=== PATIENT | male | born 1955 | race Caucasian/White ===

== ENCOUNTER 2018-08-13 08:37 | Inpatient (IN) | payer OTHER ==
--- NOTE | 2018-08-12 18:21 | GHP ---
DATE OF ADMISSION: 08/13/2018 DATE OF SURGERY: 08/13/2018. HISTORY OF PRESENT ILLNESS: The patient is a 63-year-old male who presents with right hip pain that has become chronic. It hurts with weightbearing and he has difficulty walking and bearing weight thr ough his leg and he is limping. He has tried anti-inflammatory medication. He has had a greater tro chanteric bursal injection that did not help, dry needling did not help, a course of physical therapy , and his symptoms have persisted. An MRI shows arthritic change of the hip as well as femoral aceta bular impingement. His pain impacts his gait, as well as activities of daily living. A right total hip arthroplasty is now planned. PAST MEDICAL HISTORY: He has a history of elevated cholesterol. He has a history of heart problems involving a septal defect that has been surgically corrected, and he has had skin cancer and treatmen t. He has had shoulder procedures, both sides. He has had a right total knee arthroplasty. He has had repair of an atrial septal defect. MEDICATIONS: He is using atorvastatin 10 mg p.o. daily, aspirin 81 mg p.o. daily. ALLERGIES: No known drug allergies. SOCIAL HISTORY: He is a nonsmoker. REVIEW OF SYSTEMS: Positive from a cardiac standpoint for repair of atrial septal defect and elevate d cholesterol. PHYSICAL EXAM: GENERAL APPEARANCE: Ray is a well-developed, well-nourished male in no apparent dist ress. HEAD AND NECK: Normocephalic, atraumatic. CHEST: Clear. CARDIOVASCULAR: Regular rate and rhythm. ABDOMEN: Soft. NEUROLOGIC: He is alert and oriented x3. EXTREMITIES: The right hip show s pain with hip flexion as well as internal rotation. His neurovascular exam appears intact. SKIN: Intact. IMPRESSION: Right hip arthritis and femoral acetabular impingement. PLAN: Right total hip arthroplasty. Benefits and risks of surgery have been reviewed. He has marlon d his consent form and wishes to proceed. He understands that the complications could include infect ion, damage to blood vessel or nerve, failure or loosening of the components and need for revision, h ip instability, leg length discrepancy, a blood clot in the leg or lungs, or bleeding and need for tr ansfusion. He has signed his consent form and he wishes to proceed. /[id number]/MODL
--- NOTE | 2018-08-13 08:18 | PDANEPAE ---
ANE Past Medical History - Cardiovascular History Hx Hypertension: No Hx Arrhythmias: No Hx Chest Pain: No Hx Coronary Artery / Peripheral Vascular Disease: No Hx CHF / Valvular Disease: No Hx Palpitations: No Cardiovascular History Comment: ASD REPAIR 1972 - Pulmonary History Hx COPD: No Hx Asthma/Reactive Airway Disease: No Hx Recent Upper Respiratory Infection: No Hx Oxygen in Use at Home: No Hx Sleep Apnea: No Sleep Apnea Screening Result - Last Documented: Negative - Neurologic History Hx Cerebrovascular Accident: No Hx Seizures: No Hx Dementia: No - Endocrine History Hx Diabetes: No - Renal History Hx Renal Disorders: No - Liver History Hx Hepatic Disorders: No - Neurological & Psychiatric Hx Hx Neurological and Psychiatric Disorders: No - Cancer History Hx Cancer: Yes Cancer History Comment: SKIN ca removed - Congenital Disorder History Hx Congenital Disorders: No - GI History Hx Gastrointestinal Disorders: No - Other Health History Other Health History: none - Chronic Pain History Chronic Pain: No - Surgical History Prior Surgeries: 2014 rotator cuff. 2016 redo. 2017 rotator cuff. ASD 1972. 2007 TKA ANE Review of Systems Review of Systems: - Exercise capacity Exercise capacity: >=4 METS METS (RN): 6 METS ANE Patient History - Allergies Allergies/Adverse Reactions: No Known Allergies Allergy (Verified 08/01/18 10:48) - Home Medications Home medications: home medication list seen and reviewed Home Medications: Aspirin [Aspirin 81mg (*)] 81 mg PO DAILY 08/01/18 [Last Taken 08/06/18] Atorvastatin Calcium [Lipitor 10 mg (*)] 10 mg PO DAILY 08/01/18 [Last Taken ] Cholecalciferol Vit D3 [Vitamin D3 (*)] 1,000 units PO DAILY 08/01/18 [Last Taken 08/06/18] Multivitamins [Multivitamin (*)] 1 each PO DAILY 08/01/18 [Last Taken 08/12/18] Naproxen Sodium [Aleve 220 MG (*)] 220 - 440 mg PO BID PRN 08/01/18 [Last Taken 08/06/18] - NPO status NPO Status: no food or drink >8 hours - Anes Hx Anes Hx: no prior problems - Smoking Hx Smoking Status: Never smoked - Family Anes Hx Family Hx Anesthesia Complications: none ANE Labs/Vital Signs - Labs - CBC Platelet Count: 247 on 08/06/18 - Vital Signs Height: 177.8 cm Weight: 70.307 kg ANE Physical Exam - Airway Neck exam: FROM Mallampati Score: Class 2 Mouth exam: normal dental/mouth exam - Pulmonary Pulmonary: no respiratory distress, clear to auscultation - Cardiovascular Cardiovascular: regular rate and rhythym - ASA Status ASA Status: II ANE Anesthesia Plan Anesthesia Plan: spinal
[~2018-08-13 08:37] MED LIST: EPINEPHrine 1 MG/ML INJ ONE; MIDAZOLAM 2 MG/2 ML VIAL IVP ONE; POVIDONE-IODINE 20 ML in SODIUM CL IRRIG SOLUTION 500 ML IRR ONE; ROPIVACAINE 0.2% 80 MG, EPINEPHrine 0.2 MG, KETOROLAC TROMETHAMINE 30 MG in SYRINGE 0 ML IU ONE; TRANEXAMIC ACID 1,000 MG in NS 100 ML IV ONE; ceFAZolin 1 GM/5 ML SYR ONE
[2018-08-13] MEDS ORDERED: ONDANSETRON 4 MG/2 ML VIAL IVP ONE (09:08)
[2018-08-13] MEDS ORDERED: FAMOTIDINE 20 MG TAB PO ONE (09:08)
[2018-08-13] MEDS ORDERED: DEXAMETHASONE 4 MG/ML VIAL IVP ONE (09:08)
[2018-08-13] MEDS ORDERED: ceFAZolin 2 GM/DEXTROSE 100 ML IV ONE (09:08)
[2018-08-13] MEDS ORDERED: GABAPENTIN 300 MG CAP PO ONE (09:08)
[2018-08-13] MEDS ORDERED: ACETAMINOPHEN 325 MG TAB PO ONE (09:08)
[2018-08-13] MEDS ORDERED: LIDOCAINE 1% 2 ML INJ ID PRN (09:09)
[2018-08-13] MEDS ORDERED: LR 1,000 ML IV ONE (09:09)
--- NOTE | 2018-08-13 09:50 | PDHPUP ---
History & Physical Update H&P update statement: This history and physical update is based on an assessment of the patient which was completed after admission or registration (within 24 hours), but prior to the surgery/procedure. no change H&P update: no change in patient's condition since H&P completed (no change)
[2018-08-13] MEDS ORDERED: BUPIVACAINE/DEXTROSE 7.5MG/ML 2 ML SPINAL AMP SP ONE (10:03)
[2018-08-13] MEDS ORDERED: PROPOFOL/EMULSION 500 MG/50 ML BOTTLE IV ONE ×2 (10:03→11:44)
--- NOTE | 2018-08-13 10:07 | POSTANESTH ---
Post Anesthetic Evaluation Cardiovascular Status: Normal, Stable Respiratory Status: Normal, Stable Level of Consciousness/Mental Status: Can Participate in Eval Pain Control: Adequate, Prn Tx Ordered Nausea/Vomiting Control: Adequate, Prn Tx Ordered Complications Possibly Related to Anesthesia: None Noted
[2018-08-13] MEDS ORDERED: PHENYLEPHRINE HCL 100 MCG/ML SYR ONE (10:58)
[2018-08-13] MEDS ORDERED: ePHEDrine SULFATE 25 MG/5 ML SYR ONE ×2 (10:58→11:03)
[2018-08-13] MEDS ORDERED: GLYCOPYRROLATE 0.2 MG/1 ML VIAL ONE (11:18)
[2018-08-13] MEDS ORDERED: oxyCODONE IR 5 MG TAB PO PRN (12:05)
[2018-08-13] MEDS ORDERED: LABETALOL HCL 20 MG/4 ML INJ IVP PRN (12:05)
[2018-08-13] MEDS ORDERED: ALBUTEROL 3 ML DEYVIAL IH PRN (12:05)
[2018-08-13] MEDS ORDERED: fentaNYL 100 MCG/2 ML INJ IVP PRN (12:05)
[2018-08-13] MEDS ORDERED: PROMETHAZINE HCL 25 MG/ML INJ IVP PRN ×2 (12:05→12:39)
[2018-08-13] MEDS ORDERED: DIAZEPAM 5 MG/ML 1 ML SYR IVP PRN (12:05)
[2018-08-13] MEDS ORDERED: METOCLOPRAMIDE 10 MG/2 ML VIAL IVP PRN ×2 (12:05→12:39)
[2018-08-13] MEDS ORDERED: NALOXONE HCL 0.4 MG/ML INJ IVP PRN (12:05)
[2018-08-13] MEDS ORDERED: MEPERIDINE 25 MG/0.5 ML AMP IVP PRN (12:05)
[2018-08-13] MEDS ORDERED: PHENYLEPHRINE HCL 100 MCG/ML SYR IVP PRN (12:05)
[2018-08-13] MEDS ORDERED: ONDANSETRON 4 MG/2 ML VIAL IVP PRN (12:05)
[2018-08-13] MEDS ORDERED: ACETAMINOPHEN 500 MG TAB PO PRN (12:05)
[2018-08-13] MEDS ORDERED: LR 500 ML IV PRN (12:05)
[2018-08-13] MEDS ORDERED: HYDROmorphONE/DILAUDID 2 MG/ML INJ IVP PRN (12:05)
[2018-08-13] MEDS ORDERED: LACTULOSE 20 GM/30 ML UDCUP PO PRN (12:39)
[2018-08-13] MEDS ORDERED: DIPHENOXYLATE/ATROPINE LOMOTIL 1 TAB PO PRN (12:39)
[2018-08-13] MEDS ORDERED: POLYETHYLENE GLYCOL 3350 17 GM PKT PO PRN (12:39)
[2018-08-13] MEDS ORDERED: CYCLOBENZAPRINE 10 MG TAB PO PRN (12:39)
[2018-08-13] MEDS ORDERED: PROMETHAZINE HCL 25 MG SUPPR PR PRN (12:39)
[2018-08-13] MEDS ORDERED: TEMAZEPAM 15 MG CAP PO PRN (12:39)
[2018-08-13] MEDS ORDERED: MAGNESIUM HYDROXIDE 30 ML UDCUP PO PRN (12:39)
[2018-08-13] MEDS ORDERED: BISACODYL 10 MG SUPP PR PRN (12:39)
[2018-08-13] MEDS ORDERED: KETOROLAC 15 MG/1 ML SDV IVP ONE (12:39)
[2018-08-13] MEDS ORDERED: diphenhydrAMINE 25 MG CAP PO PRN (12:39)
[2018-08-13] MEDS ORDERED: LR 1,000 ML IV SCH (13:00)
--- NOTE | 2018-08-13 13:15 | GOP ---
DATE OF OPERATION: 08/13/2018 SURGEON: Martin Campa MD REHABILITATION TECH: GREYSON Olivares, LSJessica. ANESTHESIOLOGIST: Dr. Litzy Romero. PREOPERATIVE DIAGNOSIS: Right hip osteoarthritis. POSTOPERATIVE DIAGNOSIS: Right hip osteoarthritis. PROCEDURE PERFORMED: Right total hip arthroplasty. FINDINGS: SPECIMENS: Included excised femoral head. ESTIMATED BLOOD LOSS: About 40 cc. INDICATIONS: The patient is a 63-year-old male who presents with right hip pain with motion and weig htbearing. X-rays show arthritic change of the hip, so does an MRI. He has had appropriate conservative managem ent, even hip injection, which was temporarily helpful. He is an active individual and his activitie s have become significantly limited by his arthritic right hip, right total hip arthroplasty is plann ed. DESCRIPTION OF PROCEDURE: Patient was taken to the operating room, and in the seated position, Dr. Emiliano nobles provided a spinal anesthetic. He was then placed supine, received IV sedation. He was positioned on a [employer] pegboard on his left side down. Axillary roll was used. All bony prominences were we ll padded and 4 pegs were used to stabilize his pelvis in the lateral position. Standard chlorhexidi ne prep and drape of the right hip were carried out. I used a posterior approach. I made a gently curving incision centered on the posterior aspect of th e greater trochanter, dissection was carried down the subcutaneous tissue. I incised through the IT band fascia through the trochanteric bursa, and split the gluteal fascia bluntly preserving muscle. Gentle internal rotation was used to identify the capsule and the short rotators. I divided the piri formis and tagged it with #2 FiberWire. The more distal short rotators were also tagged with another FiberWire. I then opened the joint capsule and carried that incision onto the acetabulum and placed a superior pin for leg length measurements. The capsule was tagged with 2 #2 FiberWire sutures as magy jaime. I did a predislocation measurement and the hip was gently dislocated. I started reaming the ac etabulum at 45 mm and went up to a 49 to accommodate a 50 mm press-fit cup. It was impacted in about 40 degrees of opening angle and 20 to 25 degrees of anteversion matching the inferior acetabular lig ament. It was a sound fit, required no screws. A trial liner was placed. I next prepped the femur. I used a neck cutting guide and made my calcar cut. Entered the canal wit h an awl, a box chisel, a lateralizing reamer, and then used a Taperloc series of broaches for the Ta perloc standard stems and started at about a 5 [address] worked my way up to a 14, which was a snug fit. T his matched my templating. I did trial reductions and determined by intraoperative findings, as well as my preoperative templating that a high offset neck with a standard liner provided excellent stabi lity with neutral change in his leg lengths. I then irrigated the canal. I placed the final 28 mm vitamin E crosslink poly liner in the Regenerex cup and I placed a size 14 high offset Taperloc stem, which had a sound fit and was rotationally orville y stable. I again checked a trial reduction, found that with a neutral head, I had achieved my appro priate leg length. I used a 28 ceramic head on the trunnion and the hip was reduced. The hip had ex cellent stability, including an internal rotation, even combining extreme internal rotation with 90 d egrees of flexion. It had appropriate soft tissue tension. The head and the acetabulum were colinea r when viewed from posterior. Antibiotic irrigation was used. I threaded the sutures in the capsule and the rotators through 2 hol es in the posterior greater trochanter. Capsule sutures were tied the capsule, short rotators to heather rt rotators, and this provided a nice posterior repair. I rechecked the sciatic nerve, which looked fine. Again antibiotic irrigation was used. A joint cocktail with Toradol and Marcaine was used as well. The fascia was closed with interrupted 0 Mersilene sutures, subcutaneous tissue was closed wit h 2-0 Monocryl, and the skin was closed with a running subcuticular suture, a Quilled suture that is absorbable, and then the wound was further dressed with tissue glue, Telfa and a Tegaderm. COMPLICATIONS: There were no complications. DRAINS: No drain. COUNTS: All counts were correct. The patient was taken in stable condition to recovery. /[id number]/MODL
--- NOTE | 2018-08-13 14:57 | PDMN ---
Medical Necessity Medical [place] [facility] [place] OP: R ARELY 2 days approved thru jordan
[2018-08-13] MEDS: oxyCODONE IR 5 MG TAB PO PRN ×2 (17:45→21:43)
[2018-08-13] MEDS: ceFAZolin 2 GM/DEXTROSE 100 ML IV SCH (17:46)
[2018-08-13] MEDS: ACETAMINOPHEN 325 MG TAB PO SCH ×2 (17:46→23:39)
[2018-08-13] MEDS: ASPIRIN 81 MG CHEWABLE TAB PO SCH (21:42)
[2018-08-13] MEDS: FAMOTIDINE 20 MG TAB PO SCH (21:43)
[2018-08-13] MEDS: SENNOSIDES/DOCUSATE SODIUM TAB PO SCH (21:44)
[2018-08-14] MEDS: ceFAZolin 2 GM/DEXTROSE 100 ML IV SCH (02:26)
[2018-08-14] MEDS: oxyCODONE IR 5 MG TAB PO PRN (06:11)
[2018-08-14] MEDS: ACETAMINOPHEN 325 MG TAB PO SCH ×2 (06:11→12:29)
--- NOTE | 2018-08-14 08:04 | SOAPPROG ---
SOAP Progress Note Assessment/Plan: Assessment: 08/14/18 POD#1 R ARELY, pain controlled, dressing fine, xray fine Plan: 08/14/18 08:02 PT/OT and home, asa, celebrex,oxy, tyl, outpt PT, leave dressing on Objective: Vital Signs Temp Pulse Resp BP Pulse Ox 36.8 C 63 17 104/62 93 08/14/18 04:00 08/14/18 04:00 08/14/18 04:00 08/14/18 04:00 08/14/18 04:00 Laboratory Results 08/14/18 04:57 08/13/18 08/14/18 08/15/18 05:59 05:59 05:59 Intake Total 2500 Output Total 3810 Balance -1310 ICD10 Worksheet Patient Problems: Problems Problem Status Onset Osteoarthritis of right hip Acute - ICD10 Problem Qualifiers (1) Osteoarthritis of right hip
[2018-08-14 08:13] VITALS: BP 123/82
[2018-08-14] MEDS: SENNOSIDES/DOCUSATE SODIUM TAB PO SCH (08:25)
[2018-08-14] MEDS: FAMOTIDINE 20 MG TAB PO SCH (08:25)
[2018-08-14] MEDS: ASPIRIN 81 MG CHEWABLE TAB PO SCH (08:25)
[2018-08-14] MEDS ORDERED: CHOLECALCIFEROL VIT D3 1,000 UNITS TAB PO SCH (09:00)
[2018-08-14] MEDS ORDERED: MULTIVITAMINS 1 EACH TAB PO SCH (09:00)
[2018-08-14] MEDS ORDERED: ATORVASTATIN CALCIUM 10 MG TAB PO SCH (09:00)
--- NOTE | 2018-08-14 10:29 | ASDISCHSUM ---
Discharge Information Plan Status:Home with No Needs Medically Cleared to Leave:08/13/2018 Discharge Date:08/13/2018 CM D/C Disposition:Home, Routine, Self-Care ADT D/C Disposition: Projected Discharge Date:08/14/2018 12:00 AM Transportation at D/C:Family Discharge Delay Reason: Follow-Up Date:08/14/2018 12:00 AM Discharge Slot: Final Diagnosis: Placement Information Patient Contact Information Contact Name:JULI Relationship: Address:[address] City:[place] Alternate Phone: [facility]/Zip Code:[place] [address] Email: Financial Information Financial Class:HMO and PPO Plans Primary Plan Desc:[employer] PPO POS HMO SIG ADM Primary Plan Number:[id number] Secondary Plan Desc: Secondary Plan Number: Assessment Information LACE LACE Length of stay for Answers: 2 days current admission Acuity / Level of Answers: Yes Care: Did the patient have an inpatient admission? # of Emergency department Answers: 0 visits in the last 6 months Score: 5 Date Signed: 08/14/2018 10:27 AM Electronically Signed By:SULEMAN Welsh Case Management Discharge Plan Note Case Management Discharge Discharge Order Complete? Answers: Yes Patient to Obtain Answers: via Family Medications Transportation Arranged Answers: Family/Friends Discharge Comments Notes: No CM needs identified. Pt being discharged independent. Family to transport. Date Signed: 08/14/2018 10:28 AM Electronically Signed By:SULEMAN Welsh Intervention Information
== END 2018-08-14 12:51 | disposition home or self-care (01) | DRG 470 ==
LOC: F3N 08:37
PROVIDERS: ADMIT Orthopaedic Surgery; ATTEND Orthopaedic Surgery
PROC: 0SR904Z Replacement of Right Hip Joint with Ceramic on Polyethylene Synthetic Substitute, Open Approach (ICD-10-PCS; principal; 2018-08-13 10:30)
DX: M16.11 Unilateral primary osteoarthritis, right hip (principal); M25.851 Other specified joint disorders, right hip; Z85.828 Personal history of other malignant neoplasm of skin; Z87.74 Personal history of (corrected) congenital malformations of heart and circulatory system
CPT/HCPCS: 97116-GP; 97161-GP; 97165-GO; 97530-GP; C1713; J0171; J0690; J1100; J1885; J2250; J2370; J2405; J2704; J2795

== ENCOUNTER → 2018-11-29 | Outpatient (CLI) | payer OTHER | LOC: BMCIMAGING 12:45 | PROVIDERS: ATTEND Internal Medicine Rheumatology | DX: M19.90 Unspecified osteoarthritis, unspecified site (principal) ==